=== PATIENT | female | born 1975 | race Caucasian/White ===

== ENCOUNTER 2018-11-29 13:51 | Emergency (ER) | payer OTHER ==
--- NOTE | 2018-11-29 14:14 | ED ---
Palpitations / Dysrhythmia - HPI Summary HPI Summary: 43 year old female presents with palpitations for past couple hours. she has history of a fib a couple years ago which she was admitted for. palpitations started out of nowhere. 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 She denies any chest pain but states she can only take shallow breaths. no history of SVT. is stable at the moment and able to hold a full conversation. no pain or swelling in her calf muscles. no drug use. has history of depression. no recent illness. - History of Current Complaint Time Seen by Provider: 11/29/18 14:05 - Allergy/Home Medications Allergies/Adverse Reactions: Allergies Allergy/AdvReac Type Severity Reaction Status Date / Time No Known Allergies Allergy Verified 11/29/18 14:19 Home Medications: Home Medications QUEtiapine TAB* [Seroquel 25 MG TAB*] 12.5 mg PO DAILY 11/29/18 [History Confirmed 11/29/18] Sertraline* [Zoloft*] 100 mg PO DAILY 11/29/18 [History Confirmed 11/29/18] PMH/Surg Hx/FS Hx/Imm Hx Endocrine/Hematology History: Denies: Hx Anticoagulant Therapy Cardiovascular History: Reports: Hx Atrial Fibrillation Infectious Disease History: Denies: Traveled Outside the [place] in Last 30 Days - Family History Known Family History: Positive: Cardiac Disease - Social History Alcohol Use: None Substance Use Type: Reports: None Smoking Status (MU): Never Smoked Tobacco Review of Systems Negative: Fever Positive: Palpitations. Negative: Chest Pain Negative: Shortness Of Breath All Other Systems Reviewed And Are Negative: Yes Physical Exam Triage Information Reviewed: Yes Vital Signs Reviewed: Yes Appearance: Positive: Well-Appearing Skin: Positive: Warm, Dry Head/Face: Positive: Normal Head/Face Inspection Eyes: Positive: Normal, Conjunctiva Clear ENT: Positive: Pharynx normal Respiratory/Lung Sounds: Positive: Clear to Auscultation, Breath Sounds Present Cardiovascular: Positive: Tachycardia Abdomen Description: Positive: Nontender, Soft Bowel Sounds: Positive: Present Musculoskeletal: Positive: Normal Neurological: Positive: Normal Psychiatric: Positive: Normal Diagnostics - Laboratory Lab Statement: Any lab studies that have been ordered have been reviewed, and results considered in the medical decision making process. - EKG No standard instances Cardiac Rate: Tachycardia EKG Rhythm: SVT Summary of EKG Findings: svt Course/Dx - Course Course Of Treatment: 43 year old female presents with paliptations today. has history of a fib. on arrival placed on monitor heart rate 216. ekg shows SVT. attempted vagal manauvers and unsuccessful. bp is 120/60. only medication here is diltiazem so with patient stable will transfer patient for further work up in ED and management of arrhythmia. spoke with riley in the ED to transfer patient. - Diagnoses Differential Diagnosis/HQI/PQRI: Positive: Panic Disorder, Paroxymal SVT, Other - a fib Provider Diagnoses: SVT (supraventricular tachycardia) Discharge - Sign-Out/Discharge Documenting (check all that apply): Patient Departure All imaging exams completed and their final reports reviewed: No Studies - Discharge Plan Condition: Stable Disposition: TRANS HIGHER LVL OF CARE FAC Referrals: Maria Esther Kimbrough PA [Primary Care Provider] - - Billing Disposition and Condition Condition: STABLE Disposition: Trans Higher Lvl of Care Fac
[2018-11-29 14:27] VITALS: BP 107/83
== END 2018-11-29 14:39 | disposition short-term general hospital (02) ==
LOC: UCEAST 13:51
DX: I47.1 Supraventricular tachycardia (principal); Z82.49 Family history of ischemic heart disease and other diseases of the circulatory system
CPT/HCPCS: 93005; 99212; G0463

== ENCOUNTER 2018-11-29 14:51 | Observation (INO) | payer OTHER ==
[2018-11-29 15:42] LABS: ABS Basophils 0.1 10^3/ul (0-0.2); ABS Eosinophils 0.2 10^3/ul (0-0.6); ABS Lymphocytes 3.3 10^3/ul (1.0-4.8); ABS Monocytes 0.8 10^3/ul (0-0.8); ABS Neutrophils 6.1 10^3/ul (1.5-7.7); ABS Nucleated RBC 0 10^3/ul; Eosinophil % 2.2 %; Hematocrit 44 % (35-47); Hemoglobin 14.9 g/dl (12.0-16.0); Lymphocyte % 31.4 %; Mean Corpuscular HGB Conc 34 g/dl (31-36); Mean Corpuscular Hemoglobin 32 pg (27-31); Mean Corpuscular Volume 93 fL (80-97); Mean Platelet Volume 7.8 fL (7.4-10.4); Nucleated Red Blood Cells % 0; Platelet Count 315 10^3/ul (150-450); Red Blood Count 4.72 10^6/ul (4.00-5.40); Red Cell Distribution Width 13 % (10.5-15); White Blood Count 10.6 10^3/ul (3.5-10.8)
[2018-11-29 16:03] LABS: Albumin 4.1 g/dL (3.2-5.2); Albumin/Globulin Ratio 1.2 (1-3); BUN/Creatinine Ratio 12.8 (8-20); C Reactive Protein 1.67 mg/L (<8.01); Calcium 8.6 mg/dL (8.6-10.3); EGFR African American 97.5 (>60); EGFR Non-African American 80.6 (>60); Globulin 3.3 g/dL (2-4); Potassium 3.8 mmol/L (3.5-5.0); Total Bilirubin 0.3 mg/dL (0.2-1.0); Total Protein 7.4 g/dL (6.4-8.9)
[2018-11-29 16:06] LABS: CKMB ng/mL 2.6 ng/mL (0.6-6.3)
[2018-11-29 16:15] LABS: Troponin I 0.07 ng/mL (<0.04)
[2018-11-29] MEDS ORDERED: Aspirin 81 mg CHEW TAB* 81 MG TAB.CHEW PO ONE (16:15)
[2018-11-29] MEDS ORDERED: Metoprolol Tartrate IV* 1 MG/ML 5 ML VIAL IV ONE ×2 (16:15→17:08)
--- NOTE | 2018-11-29 17:14 | ED ---
Palpitations / Dysrhythmia - HPI Summary HPI Summary: Patient is a 43-year-old female with a 2 time history of SVT and one time history of A. fib presenting to the ED from urgent care with SVT. She states the last 2 times she has had SVT she was a meth user. Currently clean 6 years. She denies taking any medications. Denies any allergies. She states she is otherwise healthy. EMS was able to convert back to sinus rhythm with 6 of adenosine. She arrives with fluids. Patient endorses fatigue, but denies any CP or SOB. She states her symptoms began with feeling palpitations and feeling like her heart was racing. She ignores this feeling in continued to go about her daily activities. She states eventually it got to the point where she felt she was too fatigued to continue during her normal activities and went to urgent care. - History of Current Complaint Chief Complaint: EDDysrhythmPalp Time Seen by Provider: 11/29/18 15:02 Hx Obtained From: Patient Onset/Duration: Sudden Onset Timing: Constant Severity Initially: Mild Severity Currently: Mild Associated Signs & Symptoms: Negative - Allergy/Home Medications Allergies/Adverse Reactions: Allergies Allergy/AdvReac Type Severity Reaction Status Date / Time No Known Allergies Allergy Verified 11/29/18 15:14 Home Medications: Home Medications Cholecalciferol (Vitamin D3) [Natural Vitamin D-3] 5,000 unit PO DAILY 11/29/18 [History Confirmed 11/29/18] Cyanocobalamin TAB* [Vitamin B12 TAB*] 1,000 mcg PO DAILY 11/29/18 [History Confirmed 11/29/18] Multivitamin [Multivitamins] 1 each PO DAILY 11/29/18 [History Confirmed ] PMH/Surg Hx/FS Hx/Imm Hx Previously Healthy: Yes Endocrine/Hematology History: Denies: Hx Anticoagulant Therapy Cardiovascular History: Reports: Hx Atrial Fibrillation - Immunization History Hx Pertussis Vaccination: No Immunizations Up to Date: Yes Infectious Disease History: No Infectious Disease History: Denies: Traveled Outside the [place] in Last 30 Days - Family History Known Family History: Positive: Cardiac Disease - Social History Occupation: Employed Full-time Lives: With Family Alcohol Use: None Hx Substance Use: No Substance Use Type: Reports: None Hx Tobacco Use: No - were Smoking Status (MU): Former Smoker Review of Systems Constitutional: Negative Negative: Fever, Chills, Fatigue, Skin Diaphoresis Negative: Dental Pain, Sore Throat Positive: Palpitations. Negative: Chest Pain Negative: Shortness Of Breath, Cough Negative: Abdominal Pain, Vomiting Genitourinary: Negative Positive: no symptoms reported, see HPI Negative: Headache, Weakness, Paresthesia Psychological: Normal All Other Systems Reviewed And Are Negative: Yes Physical Exam Triage Information Reviewed: Yes Vital Signs On Initial Exam: Initial Vitals Pulse Resp BP Pulse Ox 102 18 112/78 97 11/29/18 15:06 11/29/18 15:06 11/29/18 15:06 11/29/18 15:06 Vital Signs Reviewed: Yes Appearance: Positive: Well-Appearing, Well-Nourished Skin: Positive: Warm, Skin Color Reflects Adequate Perfusion Head/Face: Positive: Normal Head/Face Inspection Eyes: Positive: EOMI, CEE, Conjunctiva Clear Neck: Positive: Supple, Nontender, No Lymphadenopathy Respiratory/Lung Sounds: Positive: Clear to Auscultation, Breath Sounds Present Cardiovascular: Positive: RRR, Pulses are Symmetrical in both Upper and Lower Extremities Musculoskeletal: Positive: Normal, Strength/ROM Intact Neurological: Positive: Sensory/Motor Intact, Alert, Oriented to Person Place, Time, Speech Normal Diagnostics - Vital Signs Vital Signs Temp Pulse Resp BP Pulse Ox 11/29/18 16:06 94 16 104/62 97 11/29/18 16:00 96 21 98 11/29/18 15:36 106/67 11/29/18 15:09 98.1 F 104 21 112/78 96 11/29/18 15:06 102 18 112/78 97 - Laboratory Lab Results: Lab Results 11/29/18 11/29/18 Range/Units 15:30 15:30 WBC 10.6 (3.5-10.8) 10^3/ul RBC 4.72 (4.00-5.40) 10^6/ul Hgb 14.9 (12.0-16.0) g/dl Hct 44 (35-47) % MCV 93 (80-97) fL MCH 32 H (27-31) pg MCHC 34 (31-36) g/dl RDW 13 (10.5-15) % Plt Count 315 (150-450) 10^3/ul MPV 7.8 (7.4-10.4) fL Neut % (Auto) 57.9 % Lymph % (Auto) 31.4 % [place] % (Auto) 7.7 % Eos % (Auto) 2.2 % Baso % (Auto) 0.8 % Absolute Neuts (auto) 6.1 (1.5-7.7) 10^3/ul Absolute Lymphs (auto) 3.3 (1.0-4.8) 10^3/ul Absolute Monos (auto) 0.8 (0-0.8) 10^3/ul Absolute Eos (auto) 0.2 (0-0.6) 10^3/ul Absolute Basos (auto) 0.1 (0-0.2) 10^3/ul Absolute Nucleated RBC 0 10^3/ul Nucleated RBC % 0 Sodium 141 (135-145) mmol/L Potassium 3.8 (3.5-5.0) mmol/L Chloride 109 (101-111) mmol/L Carbon Dioxide 29 (22-32) mmol/L Anion Gap 3 (2-11) mmol/L BUN 10 (6-24) mg/dL Creatinine 0.78 (0.51-0.95) mg/dL Est GFR ( Amer) 97.5 (>60) Est GFR (Non-Af Amer) 80.6 (>60) BUN/Creatinine Ratio 12.8 (8-20) Glucose 85 (70-100) mg/dL Calcium 8.6 (8.6-10.3) mg/dL Total Bilirubin 0.30 (0.2-1.0) mg/dL AST 18 (13-39) U/L ALT 14 (7-52) U/L Alkaline Phosphatase 72 (34-104) U/L CK-MB (CK-2) 2.6 (0.6-6.3) ng/mL Troponin I 0.07 H* (<0.04) ng/mL C-Reactive Protein 1.67 (<8.01) mg/L Total Protein 7.4 (6.4-8.9) g/dL Albumin 4.1 (3.2-5.2) g/dL Globulin 3.3 (2-4) g/dL Albumin/Globulin Ratio 1.2 (1-3) Result Diagrams: 11/29/18 15:30 11/29/18 15:30 Lab Statement: Any lab studies that have been ordered have been reviewed, and results considered in the medical decision making process. Course/Dx - Course Course Of Treatment: Patient arrives by way of EMS in normal sinus rhythm. EKG obtained which shows a rate of [address] depressions throughout. Troponin 0.07. Patient is given metoprolol 2.5 IV and aspirin 324. Patient is to feel fatigued, however denies any CP or SOB. Second EKG obtained which shows a rate of 89. Discussed case with Dr. Meyer. Discussed case with Dr. Easley, hospitalist who agrees to admit and likely will have echo in the morning. Patient made aware and is okay with this plan. - Diagnoses Provider Diagnoses: SVT (supraventricular tachycardia) - Physician Notifications Discussed Care Of Patient With: Praneeth Meyer Discharge - Sign-Out/Discharge Documenting (check all that apply): Patient Departure Patient Received Moderate/Deep Sedation with Procedure: No - Discharge Plan Condition: Fair Disposition: ADMITTED TO [facility] Referrals: Maria Esther Kimbrough PA [Primary Care Provider] - - Billing Disposition and Condition Condition: FAIR Disposition: Admitted to [facility]
[2018-11-29] MEDS: Metoprolol Tartrate TAB* 25 MG PO SCH (21:15)
[2018-11-29] MEDS: Heparin VIAL(*) 5000 UNITS/ML VIAL (FIVE THOUSAND) SUBCUT SCH (21:46)
--- NOTE | 2018-11-29 21:58 | HP ---
CC: CORBIN Hutton * HISTORY AND PHYSICAL: DATE OF ADMISSION: 11/29/18 PRIMARY CARE PROVIDER: CORBIN Hutton. ATTENDING PHYSICIAN: Dr. Herb Rivera * (dictated by Teto Bone NP). CHIEF COMPLAINT: Palpitations, chest heaviness. HISTORY OF PRESENT ILLNESS: Ms. 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 At the same time, she was having palpitations and chest heaviness. She decided to present to urgent care where she was found to have a heart rate in the 200s to 220s and be in SVT. She denies any recent fevers, chills, cough, shortness of breath, although she states that she feels as though she is unable to take a full breath. Nausea, vomiting, diarrhea, abdominal pain, urinary symptoms such as urgency, dysuria and frequency. She states she has never had a stress test from urgent care. EMS was called for her to be transferred to the emergency room. EMS administered 6 mg of adenosine and her heart rate decreased into the 100s. While in the emergency room, she received a full dose aspirin, Lopressor 2.5 mg IV. She had an initial troponin of 0.07, an EKG showing a sinus rhythm with a rate of 92, a T-wave inversion in V1, ST depression in V3, 4, and 5. She has no previous EKGs for comparison. Her other labs were unremarkable. She had a negative chest x- ray. Due to her elevated troponin, she was referred to the hospitalist service for further evaluation and possible admission. PAST MEDICAL HISTORY: 1. Supraventricular tachycardia. 2. Methamphetamine abuse. PAST SURGICAL HISTORY: Status post hysterectomy. HOME MEDICATIONS: Include: 1. Multivitamin 1 tablet oral daily. 2. Vitamin D3 5000 units oral daily. 3. Zoloft 100 mg oral daily. 4. Seroquel 12.5 mg oral daily. 5. Vitamin B12 1000 mcg oral daily. ALLERGIES: No known drug allergies. FAMILY HISTORY: Mother with heart disease in her 60s. Father with heart disease starting in his 50s. Mother and father both with diabetes. Father with colon cancer and mother with lung cancer. SOCIAL HISTORY: She is a former smoker quitting 6 years ago. Prior to that she had a 20-year, 2 pack a day smoking history. She denies alcohol use. She has been sober from methamphetamine use for 6 years. She is a dietary aide. She has nobody that she would like to elect to be a surrogate decision maker for her. REVIEW OF SYSTEMS: I performed an 11-point review of systems. All the pertinent positives and negatives are mentioned in the history of present illness. The remaining review of systems is negative. PHYSICAL EXAMINATION GENERAL APPEARANCE: She is alert, pleasant, appears to be in no acute distress. VITAL SIGNS: Temperature 98.1, heart rate 85, respiratory rate 15, O2 sat 96% on room air, blood pressure 91/68. HEENT: Normocephalic, atraumatic. Pupils are equal and reactive to light. Extraocular movements are intact. RESPIRATORY: There is no accessory muscle use. Lungs are clear to auscultation bilateral. CARDIOVASCULAR: Regular rate and rhythm. S1, S2 present. There are no murmurs , rubs, or gallops heard. ABDOMEN: Soft, nontender, nondistended. Bowel sounds present x4. EXTREMITIES: No lower extremity edema. DP and PT pulses are 2+ and symmetric. MUSCULOSKELETAL: There is no clubbing or cyanosis noted. The patient exhibits good strength in all extremities. NEUROLOGICAL: Alert and oriented x4. Cranial nerves II through XII are grossly intact. PSYCHOLOGICAL: She is calm and cooperative. SKIN: No rashes or abnormalities seen in the exposed skin. DIAGNOSTIC STUDIES/LAB DATA: Sodium 141, potassium 3.8, chloride 109, CO2 of 29, BUN 10, creatinine 0.78, glucose 85. White blood cell count 10.6, hemoglobin 14.9, hematocrit 44, platelet count 315,000. Troponin 0.07. EKG shows a sinus rhythm with a rate of 92. There is T wave inversion in V1 and ST depression in V3, 4 and 5. There are no previous EKGs for comparison. Chest x-ray from today. Radiologist's impression: No evidence of active cardiopulmonary disease. IMPRESSION: Ms. Acharya is a 43-year-old female with past medical history significant for supraventricular tachycardia in the setting of methamphetamine use. She presented to urgent care initially with complaints of palpitations and was found to be in supraventricular tachycardia with heart rates into the 220s and then was transferred to the emergency room after receiving adenosine. She will be admitted as an observation for chest pain, elevated troponin and supraventricular tachycardia. ASSESSMENT/PLAN: 1. Chest pain. The patient reports a sensation of chest heaviness, inability to take a deep breath and feeling as though she cannot take a deep breath. She states that this is feeling better, but she reports feeling "top heavy." I am going to trend her troponins q.3 hours, monitor her on telemetry with serial EKGs. Plan is to get an echocardiogram in the morning and if her troponin does not continue to rise, get an exercise nuclear stress test. She receives IV metoprolol in the ER. I am going to continue her on metoprolol tartrate 12.5 twice daily. She has already received full dose aspirin. Continue her on a baby aspirin starting tomorrow. Additionally, I am going to check fasting lipids and start a statin accordingly. Also check a hemoglobin A1c. 2. Supraventricular tachycardia. Unclear cause. In the past, she has had supraventricular tachycardia in the setting of methamphetamine use. Her supraventricular tachycardia has broke. She is now in sinus rhythm. We will check magnesium. Her potassium is within limits. Again, she is going to get an echocardiogram and a stress test tomorrow. 3. Fluids, electrolytes and nutrition: Heart healthy diet. 4. Code status. Full code. 5. DVT prophylaxis. She is at moderate risk, will have subcu heparin. 6. Disposition. Observation. TIME SPENT: Time for this admission was approximately 60 minutes, greater than half of that was spent with the patient discussing medications, past medical history, the events leading up to her arrival today, performing a physical examination. The case has been reviewed with the attending, Dr. Rivera, who agrees with the plan of care. TETO BONE, [place] [id number]/[facility] #: [id number] HAILEY
[2018-11-29] MEDS ORDERED: QUEtiapine TAB* 25 MG PO SCH (22:00)
[2018-11-29 22:54] LABS: Activated Partial Thrombo Time 35.4 seconds (26.0-36.3); INR 0.86 (0.77-1.02)
[2018-11-30] MEDS: Heparin VIAL(*) 5000 UNITS/ML VIAL (FIVE THOUSAND) SUBCUT SCH ×2 (05:46→13:56)
[2018-11-30 06:23] LABS: HDL Cholesterol 51.9 mg/dL
[2018-11-30] MEDS ORDERED: NS 0.9% 1000 ML** 1,000 ML IV ONE (08:27)
[2018-11-30] MEDS ORDERED: Aspirin 81 mg CHEW TAB* 81 MG TAB.CHEW PO SCH (09:00)
[2018-11-30] MEDS ORDERED: Sertraline* 100 MG TAB PO SCH (09:00)
[2018-11-30] MEDS ORDERED: Cyanocobalamin TAB* 500 MCG PO SCH (09:00)
--- NOTE | 2018-11-30 09:26 | ECHO ---
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 Technical Comments: The study quality is good. Completed at 0840. Left Ventricle: The left ventricular chamber size is normal. There is no left ventricular hypertrophy. Global left ventricular wall motion and contractility are within normal limits. Left ventricular systolic function is at the lower limits of normal. The estimated ejection fraction is 50-55%. Normal left ventricular diastolic filling is observed. Left Atrium: The left atrial chamber size is normal. Right Ventricle: Moderator Band present. The right ventricular cavity size is normal. The right ventricular global systolic function is normal. Right Atrium: The right atrium is mildly dilated. Aortic Valve: The aortic valve is trileaflet. There is no evidence of aortic valve thickening. There is a trace of aortic regurgitation. There is no evidence of aortic stenosis. Mitral Valve: The mitral valve leaflets are mildly thickened. There is a trace of mitral regurgitation. There is no evidence of mitral stenosis. Tricuspid Valve: The tricuspid valve leaflets are normal. There is trace tricuspid regurgitation. The right ventricular systolic pressure is estimated at 16 mmHg. No pulmonary hypertension is noted. There is no tricuspid stenosis. Pulmonic Valve: The pulmonic valve appears normal. There is a trace pulmonic regurgitation. There is no pulmonic stenosis. Pericardium: There is no significant pericardial effusion. Aorta: There is no dilatation of the ascending aorta. There is no dilatation of the aortic arch. The aortic root is normal in size. Pulmonary Artery: The main pulmonary artery appears normal. Venous: The inferior vena cava appears normal in size. There is a greater than 50% respiratory change in the inferior vena cava dimension. Conclusions Global left ventricular wall motion and contractility are within normal limits. Left ventricular systolic function is at the lower limits of normal. The estimated ejection fraction is 50-55%. The right ventricular global systolic function is normal. There is a trace of aortic regurgitation. There is no evidence of aortic stenosis. There is a trace of mitral regurgitation. There is no evidence of mitral stenosis. There is trace tricuspid regurgitation. No pulmonary hypertension is noted. There is no significant pericardial effusion. Measurements Name Value Normal Range RVIDd (AP) 2D 2.4 cm (0.9 - 2.6) RVDdMajor (2D) 3.5 cm (2.2 - 4.4) RAd ISD 4CH 5.4 cm (3.4 - 4.9) RA (A4C)W 4 cm (2.9 - 4.6) IVSd (2D) 0.8 cm (0.6 - 1) LVPWd (2D) 0.8 cm (0.6 - 1) LVIDd (2D) 4.8 cm (3.6 - 5.4) LVIDs (2D) 3.5 cm - LV FS (2D) 27 % (25 - 45) Aortic Annulus 1.9 cm (1.4 - 2.6) Ao root diameter (2D) 2.6 cm (2.1 - 3.5) Ascending Ao 2.6 cm (2.1 - 3.4) Aortic arch 2 cm (1.8 - 3.4) LA dimension (AP) 2D 3.4 cm (2.3 - 3.8) LAd ISD 4CH 5 cm (2.9 - 5.3) LA ISD 4CH W 4.1 cm (2.5 - 4.5) Name Value Normal Range LA ESV BP (A/L) index 21 ml/m2 - Name Value Normal Range MV E-wave Vmax 0.8 m/sec - MV deceleration time 215 msec - MV A-wave Vmax 0.4 m/sec - MV E:A ratio 1.9 ratio - LV septal e' Vmax 0.11 m/sec - LV lateral e' Vmax 0.11 m/sec - LV E:e' septal ratio 7.3 ratio - LV E:e' lateral ratio 7.3 ratio - Name Value Normal Range AV Vmax 1.2 m/sec - AV VTI 22 cm - AV peak gradient 6 mmHg - AV mean gradient 3 mmHg - LVOT Vmax 0.8 m/sec - LVOT VTI 17 cm - LVOT peak gradient 3 mmHg - LVOT mean gradient 1 mmHg - AKI Vmax 1.1 m/sec - Name Value Normal Range TR Vmax 1.8 m/sec - TR peak gradient 13 mmHg - RAP 3 mmHg - RVSP 16 mmHg - IVC diameter 1.9 cm - Name Value Normal Range PV Vmax 0.6 m/sec - PV peak gradient 2 mmHg -
[2018-11-30] MEDS: Metoprolol Tartrate TAB* 25 MG PO SCH (09:43)
[2018-11-30 15:35] VITALS: BP 99/60
--- NOTE | 2018-11-30 21:33 | DS ---
DISCHARGE SUMMARY: DATE OF ADMISSION: 11/29/18 DATE OF DISCHARGE: 11/30/18 PRIMARY CARE PROVIDER: Maria Esther Kimbrough, Fax [phone] PRIMARY DIAGNOSES: 1. Supraventricular tachycardia. 2. Elevated troponin. MEDICATIONS ON DISCHARGE: Include: 1. Aspirin 81 mg daily. 2. Vitamin B12 1000 mcg daily. 3. Seroquel 12.5 mg daily. 4. Zoloft 100 mg daily. 5. Cholecalciferol 5000 units daily. 6. Multivitamin 1 tablet daily. Note: Metoprolol was not added secondary to borderline-low blood pressure. PROCEDURE PERFORMED DURING HOSPITAL STAY: 1. Myoview stress test. Impression: Low risk. 2. Transthoracic echocardiogram. Impression: Left ventricular systolic function is within normal limits. LVEF is 50% to 55%. Right ventricular function is normal. Trace AR, no evidence of . Trace MR, no evidence of MS. Trace MR, no pulmonary hypertension. No pericardial effusion. PERTINENT LABORATORY DATA: Troponin I on presentation peaked at 2.34 before downtrending. Pertinent vitals on presentation: Heart rate peaked at 104, although it was 204 in the computer, but 210 by EKG. 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 She was given adenosine as well as Lopressor and heart rate broke to normal sinus rhythm. She had an elevated troponin after extreme tachycardia, which downtrended after control of heart rate. Her stress test was negative. She remained in normal sinus rhythm throughout the remainder of the hospital stay. Her blood pressure per report runs in the systolics of 90 and that is where it ran during majority of this hospital stay and was limited with diastolics in the 50s to 60s. This limited the initiation of metoprolol for what she received 0 doses during the course of hospital stay after admission. Attention to initiating AV luciano blockade should be made. I did discuss with Dr. Rodriguez, who recommends that she be seen in consultation with Dr. Cuevas, whose name I placed in her discharge paper work, discussed with the patient as well as placed a consultation in [facility]. I am not clear that this will transfer to [facility], but he does come to [place] once monthly. There were no complications during the course of her hospital stay. At followup: 1. Evaluate blood pressure and initiate low dose AV luciano blockade if possible. 2. Please ensure the patient is able to follow up with electronic development technician including possibility of Dr. Thee Cuevas, who does come to [place] monthly as recommended by Dr. Rodriguez. 3. No other specific labs or vitals that need followup. Reasons to return to the hospital including, but not limited to recurrent or worsening symptoms, palpitation, shortness of breath, chest pain, nausea, vomiting, lightheadedness, loss of consciousness or near loss of consciousness, dyspnea on exertion, inability to obtain or tolerate medications discussed with the patient, she acknowledged understanding. TIME SPENT: Greater than 60 minutes was spent on the discharge of this patient , greater than half was spent [id number] with the patient. [id number]/[facility] #: [id number] MTDD
== END 2018-11-30 17:30 | disposition home or self-care (01) ==
LOC: ED 14:51 → MEDTELE 20:02
PROVIDERS: ADMIT Internal Medicine; ATTEND Internal Medicine
DX: I47.1 Supraventricular tachycardia (principal); R79.89 Other specified abnormal findings of blood chemistry; Z79.82 Long term (current) use of aspirin; R07.9 Chest pain, unspecified; Z87.891 Personal history of nicotine dependence; R00.2 Palpitations
CPT/HCPCS: 36415; 71046; 78452; 80053; 80061; 82553; 83036; 83735; 84484; 85025; 85610; 85730; 86140; 93005; 93017; 93306; 96361; 96372; 96374; 96375; 99284; A9270-GY; A9502; G0378; J1644; J3490